=== PATIENT | female | born 2000 | race Caucasian/White ===

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

== ENCOUNTER 2021-09-30 13:34 | Outpatient (CLI) | payer BC, SELFPAY ==
[2021-09-30 14:09] LABS: HCG Quant, Pregnancy 24 mIU/mL (1-3)
== END 2021-09-30 13:35 | disposition home or self-care (01) ==
LOC: LBO 13:35
PROVIDERS: Visit Provider Nurse Practitioner Women's Health
DX: Z30.8 Encounter for other contraceptive management; Z32.01 Encounter for pregnancy test, result positive
CPT/HCPCS: 36415; 84702

== ENCOUNTER 2021-09-30 15:08 | Outpatient (REF) | payer BC, SELFPAY ==
--- NOTE | 2021-09-30 13:15 | PAPFT_PTH ---
PATIENT: Cynthia Marques LOC: [facility] U#:[id number] AGE/SX: 21/F ROOM: RE09/30/[address]: Angeles Gambino NP : 2000 BED: DIS: 09/30/2021 SPEC #: [id number] RECD: 09/30/21 18:03 STATUS: ROYCE SHARMA #: [id number] ALBINO: 09/30/21 13:[address]: Angeles Gambino NP DEPT: [facility] Cytology RECD BY: Camille Middleton ENTERED: 09/30/21 18:03 SP TYPE: PAPFT OTHR DR: Unknown,Unknown Tissues: 1 - CX/ENDOCX FOR PAP SMEARS Procedures: PAP THIN PREP/[facility] Screening Comments: [id number] (CHLAMYDIA/GC)
[2021-10-01 15:48] LABS: Chlamydia Result Negative (Negative); GC Result Negative (Negative)
== END 2021-09-30 15:09 | disposition home or self-care (01) ==
LOC: LBN 15:08
PROVIDERS: Visit Provider Nurse Practitioner Women's Health
DX: Z11.3 Encounter for screening for infections with a predominantly sexual mode of transmission (principal); Z12.4 Encounter for screening for malignant neoplasm of cervix; R87.612 Low grade squamous intraepithelial lesion on cytologic smear of cervix (LGSIL)
CPT/HCPCS: 87491; 87591; 88142

== ENCOUNTER 2023-03-04 11:43 | Outpatient (REF) | payer BC, SELFPAY ==
--- NOTE | 2023-03-04 11:30 | PAPFT_PTH ---
PATIENT: Cynthia Marques LOC: [facility] U#:[id number] AGE/SX: 23/F ROOM: RE03/04/[address]: Latricia Scanlon DO : 2000 BED: DIS: 03/04/2023 SPEC #: [id number] RECD: 03/04/23 13:16 STATUS: ROYCE REQ #: [id number] ALBINO: 03/04/23 11:[address]: Latricia Scanlon DEPT: [facility] Cytology RECD BY: Camille Middleton Tissues: 1 - CX/ENDOCX FOR PAP SMEARS Procedures: PAP THIN PREP/[facility] Screening HPV DNA PROBE Comments: [id number] (CHLAMYDIA/GC)
[2023-03-07 16:23] LABS: Chlamydia Result Negative (Negative); GC Result Negative (Negative)
== END 2023-03-04 11:44 | disposition home or self-care (01) ==
LOC: LBN 11:43
PROVIDERS: Visit Provider Obstetrics & Gynecology
DX: N89.8 Other specified noninflammatory disorders of vagina (principal); Z12.4 Encounter for screening for malignant neoplasm of cervix; Z11.3 Encounter for screening for infections with a predominantly sexual mode of transmission; Z11.51 Encounter for screening for human papillomavirus (HPV); N76.0 Acute vaginitis
CPT/HCPCS: 87491; 87591; 88142; 87480; 87510; 87624; 87660

== ENCOUNTER 2025-04-08 09:07 | Outpatient (REF) | payer OTHER, SELFPAY ==
[2025-04-09 12:18] LABS: Chlamydia Result Negative (Negative); GC Result Negative (Negative)
== END 2025-04-08 09:08 | disposition home or self-care (01) ==
LOC: LBN 09:07
PROVIDERS: Visit Provider Obstetrics & Gynecology
DX: Z11.3 Encounter for screening for infections with a predominantly sexual mode of transmission (principal)
CPT/HCPCS: 87491; 87591